=== PATIENT | female | born 1955 | race Caucasian/White ===

== ENCOUNTER → 2023-08-30 12:43 | Outpatient (REF) | payer MEDICARE, BC, SELFPAY | LOC: HWRCS 12:43 | PROVIDERS: ATTENDING PHYSICIAN Internal Medicine Cardiovascular Disease; FAMILY PHYSICIAN Family Medicine | DX: I35.1 Nonrheumatic aortic (valve) insufficiency (principal) | CPT/HCPCS: 93306 ==

== ENCOUNTER → 2024-08-31 11:21 | Outpatient (REF) | payer MEDICARE, BC, SELFPAY | LOC: HWRCS 11:21 | PROVIDERS: ATTENDING PHYSICIAN Internal Medicine Cardiovascular Disease; FAMILY PHYSICIAN Family Medicine | DX: I35.1 Nonrheumatic aortic (valve) insufficiency (principal) | CPT/HCPCS: 93306 ==